=== PATIENT | female | born 1975 | race Caucasian/White ===

== ENCOUNTER 2018-07-10 11:13 | Day surgery (SDC) | payer MEDICAID ==
[~2018-07-10] VITALS: Ht 165.1 cm; Wt 95.5 kg
[~2018-07-10 11:13] MED LIST: ACET-2247 PO; METO5TAB95 PO; OMEP20 PO; SODIUM CHLORIDE 0.9% 1,000 ML IV ONE
[2018-07-10] MEDS ORDERED: SODIUM CHLORIDE 0.9% 1,000 ML IV ONE (11:54)
[2018-07-10] MEDS ORDERED: LIDOCAINE/PF 2% 5 ML VIAL INJ ONE (12:00)
[2018-07-10] MEDS ORDERED: PROPOFOL 1% 20 ML VIAL IVP ONE (12:00)
== END 2018-07-10 16:00 | disposition home or self-care (01) ==
LOC: SURGERY 11:13
PROVIDERS: ATTEND Student in an Organized Health Care Education/Training Program
DX: K29.50 Unspecified chronic gastritis without bleeding (principal); K21.9 Gastro-esophageal reflux disease without esophagitis; I10 Essential (primary) hypertension; Z80.0 Family history of malignant neoplasm of digestive organs; Z79.899 Other long term (current) drug therapy
CPT/HCPCS: 36415; 43239; 84702; 88305; 88312; 88313; C1769; J2704; J3490; J7030